=== PATIENT | female | born 1970 | race American Indian/Alaskan Native ===

== ENCOUNTER 2016-07-26 10:57 | Outpatient (CLI) | payer OTHER ==
[~2016-07-26 10:57] MED LIST: PROVENTIL IH ONE
--- NOTE | 2016-07-26 11:34 | XRay Report ---
RIGHT HIP, 2 views: History: Right hip pain. The bony architecture is intact without evidence of fracture or dislocation. No significant soft tissue abnormality is seen. IMPRESSION: Normal right hip.
--- NOTE | 2016-07-26 11:35 | XRay Report ---
RIGHT KNEE, 3 views: History: Right knee pain. Normal bone mineralization. 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 There is no evidence for fracture, bone lesion or large osteochondral defect. 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 The soft tissues are unremarkable. IMPRESSION: Moderate osteoarthritic changes. No acute process identified.
== END 2016-07-26 10:58 | disposition home or self-care (01) ==
LOC: PF 10:57
PROVIDERS: ATTEND Internal Medicine
DX: M17.11 Unilateral primary osteoarthritis, right knee (principal); M25.551 Pain in right hip; G47.30 Sleep apnea, unspecified; E11.9 Type 2 diabetes mellitus without complications; I10 Essential (primary) hypertension; E05.90 Thyrotoxicosis, unspecified without thyrotoxic crisis or storm; J44.9 Chronic obstructive pulmonary disease, unspecified; J40 Bronchitis, not specified as acute or chronic
CPT/HCPCS: 94060; 94640

== ENCOUNTER 2020-09-22 10:50 | Emergency (ER) | payer OTHER ==
[2020-09-22 10:56] VITALS: BP 186/100
== END 2020-09-22 13:11 | disposition home or self-care (01) ==
LOC: ED 10:50
DX: S40.012A Contusion of left shoulder, initial encounter (principal); S80.02XA Contusion of left knee, initial encounter; M62.838 Other muscle spasm; I10 Essential (primary) hypertension; G47.30 Sleep apnea, unspecified; J44.9 Chronic obstructive pulmonary disease, unspecified; E03.9 Hypothyroidism, unspecified; Z98.890 Other specified postprocedural states; Z79.899 Other long term (current) drug therapy; V89.2XXA Person injured in unspecified motor-vehicle accident, traffic, initial encounter; Y93.89 Activity, other specified; Y92.488 Other paved roadways as the place of occurrence of the external cause; Y99.8 Other external cause status
CPT/HCPCS: 99283